=== PATIENT | female | born 1995 | race Hispanic/Latino ===

== ENCOUNTER 2020-12-19 05:34 | Inpatient (IN) | payer OTHER ==
[2020-12-19] MEDS ORDERED: Famotidine/PF 20 mg/2ml Vial SLOW IVP PRN (06:09)
[2020-12-19] MEDS ORDERED: hydrALAZINE 20 MG/ML VIAL SLOW IVP PRN ×2 (06:09→10:04)
[2020-12-19] MEDS ORDERED: Lactated Ringer's 1,000 ML IV SCH (06:09)
[2020-12-19] MEDS ORDERED: Ondansetron PF 4 MG/2 ML Vial IVP PRN ×3 (06:09→14:49)
[2020-12-19] MEDS ORDERED: Promethazine HCl 25 MG/ML VIAL IM PRN ×3 (06:09→14:49)
[2020-12-19] MEDS ORDERED: Bicitra 30 ML UDCUP PO PRN (06:09)
[2020-12-19] MEDS ORDERED: CEFAZOLIN 2 GM in Premix Bag 1 BAG IVPB SCH (06:09)
[2020-12-19 06:11] VITALS: BMI 36.6
[2020-12-19 06:56] LABS: Hemoglobin 10.7 g/dL (12.0-15.5); Mean Corpuscular HGB CONC 33.4 g/dL (32.0-36.0); Mean Corpuscular Hemoglobin 29.9 pg (27.0-33.0); Mean Corpuscular Volume 89.4 fl (81.6-98.3); Mean Platelet Volume 10.4 fl (7.4-10.4); Platelet Count 183 10x3/uL (150-450); RBC Distribution Width 13.1 % (11.5-14.5); Red Blood Cell (RBC) Count 3.58 10x6/uL (3.90-5.03); White Blood Cell (WBC) Count 8.1 10x3/uL (3.5-10.5)
[2020-12-19] MEDS ORDERED: Bicitra 30 ML UDCUP ONE ×3 (07:13→07:14)
[2020-12-19] MEDS ORDERED: Morphine PF 10 MG/10 ML VIAL ONE (07:25)
[2020-12-19] MEDS ORDERED: Ondansetron PF 4 MG/2 ML Vial ONE (07:26)
[2020-12-19] MEDS ORDERED: NIFEdipine 10 MG CAP ONE (07:27)
[2020-12-19] MEDS ORDERED: Oxytocin 10 UNITS/ML VIAL ONE ×2 (07:28→08:12)
[2020-12-19] MEDS ORDERED: ePHEDrine Sulfate 50 MG/10 ML VIAL ONE (07:54)
[2020-12-19 08:04] LABS: Hep B Surf Ag Non-Reactive S/CO (NonReactive)
[2020-12-19 08:05] LABS: Syphilis Antibody Nonreactive (Nonreactive); Syphilis Antibody Index 0.02 S/CO (<1.00 Non-Reactive)
[2020-12-19] MEDS ORDERED: Methylergonovine 0.2 MG/ML VIAL ONE (08:09)
[2020-12-19] MEDS: Carboprost 250 MCG/ML AMP ONE ×2 (08:10→08:26)
[2020-12-19 08:12] LABS: HBSAg Index 0.12 S/CO (0-0.99)
[2020-12-19] MEDS ORDERED: Misoprostol 200 MCG TAB ONE (08:13)
[2020-12-19] MEDS ORDERED: Metoclopramide HCl 10 MG/2 ML VIAL ONE (08:31)
[2020-12-19] MEDS ORDERED: Promethazine HCl 25 MG/ML VIAL ONE (08:40)
[2020-12-19] MEDS ORDERED: Metoprolol Tartrate 5 MG/5 ML VIAL ONE (08:42)
[2020-12-19] MEDS ORDERED: Diltiazem HCl 125 MG, Admixture Fee 1 EACH in Sodium Chloride 0.9% 100 ML IVPB SCH (09:00)
[2020-12-19] MEDS ORDERED: NS w/ Oxytocin 30 units 500 ML ONE (09:37)
[2020-12-19] MEDS ORDERED: Amiodarone 450 MG in Dextrose 5% in Water 250 ML IVPB SCH (10:00)
[2020-12-19] MEDS ORDERED: Simethicone Chewable 80 MG TAB PO PRN (10:04)
[2020-12-19] MEDS ORDERED: Meperidine HCl/PF 25 MG/ML VIAL IM PRN (10:04)
[2020-12-19] MEDS ORDERED: diphenhydrAMINE 25 MG CAP PO PRN (10:04)
[2020-12-19] MEDS ORDERED: Lanolin Ointment 7 GM TUBE TOP PRN (10:04)
[2020-12-19] MEDS ORDERED: HYDROcodone/Acetaminophen 5/325 mg Tablet PO PRN ×2 (10:04)
[2020-12-19] MEDS ORDERED: Bisacodyl 10 MG SUPP PR PRN (10:04)
[2020-12-19] MEDS ORDERED: Amiodarone 150 MG in Dextrose 5% in Water 100 ML IVPB SCH (10:15)
[2020-12-19] MEDS ORDERED: Amiodarone In Dextrose 100 ML IVPB SCH (10:15)
[2020-12-19] MEDS ORDERED: Amiodarone In Dextrose 200 ML IVPB SCH (10:15)
[2020-12-19 10:19] LABS: ALT (SGPT) 10 U/L (8-55); AST (SGOT) 16 U/L (5-34); Albumin 2.9 g/dL (3.5-5.0); Alkaline Phosphatase 152 U/L (40-110); Anion Gap 14 mmol/L (10-20); BUN (Urea Nitrogen) 10 mg/dL (7.0-18.7); Bilirubin, Total 0.3 mg/dL (0.2-1.2); Calc. Creatinine Clearance 234 mL/min (70-130); Calcium 8.5 mg/dL (7.8-10.44); Carbon Dioxide 20 mmol/L (22-29); Chloride 106 mmol/L (98-107); Glucose 113 mg/dL (70-105); Potassium 3.7 mmol/L (3.5-5.1); Protein, Total 5.9 g/dL (6.0-8.3); Sodium 136 mmol/L (136-145)
[2020-12-19] MEDS ORDERED: NS w/ Oxytocin 30 units 500 ML IV SCH (10:45)
[2020-12-19] MEDS ORDERED: PROPOFOL 20 ML ONE (11:20)
[2020-12-19] MEDS ORDERED: PROPOFOL 200 MG/20 ML VIAL IVP SCH (11:20)
[2020-12-19 12:04] LABS: Magnesium 1.5 mg/dL (1.6-2.6)
[2020-12-19] MEDS ORDERED: Magnesium Sulfate 4 GM in Sodium Chloride 0.9% 250 ML 250 ML IVPB SCH (13:30)
[2020-12-19 14:03] LABS: Hemoglobin 10.5 g/dL (12.0-15.5); Mean Corpuscular HGB CONC 33.3 g/dL (32.0-36.0); Mean Corpuscular Hemoglobin 29.3 pg (27.0-33.0); Mean Platelet Volume 10.2 fl (7.4-10.4); Platelet Count 186 10x3/uL (150-450); Red Blood Cell (RBC) Count 3.58 10x6/uL (3.90-5.03); White Blood Cell (WBC) Count 14.8 10x3/uL (3.5-10.5)
[2020-12-19] MEDS ORDERED: diphenhydrAMINE 50 MG/ML VIAL IVP PRN (14:49)
[2020-12-19] MEDS ORDERED: Naloxone HCl 0.4 mg/ml Vial IVP PRN ×2 (14:49)
[2020-12-19] MEDS ORDERED: Naloxone HCl 0.4 mg/ml Vial IV PRN (14:49)
[2020-12-19] MEDS ORDERED: Promethazine HCl 25 MG SUPP PR PRN (14:49)
[2020-12-19] MEDS ORDERED: Communication Order-Pharmacy FS SCH (15:00)
[2020-12-19] MEDS ORDERED: Magnesium 2 GM/50 ML BAG (IN WATER) ONE ×2 (15:06→15:07)
[2020-12-19] MEDS: Magnesium 2 GM/50 ML 2 GM in Premix Bag 1 BAG IVPB SCH ×2 (15:20→16:44)
[2020-12-19] MEDS: Ketorolac Tromethamine 30 MG/ML VIAL IVP PRN ×2 (15:26→22:38)
[2020-12-19] MEDS: Ibuprofen 400 MG TAB PO SCH (17:47)
[2020-12-20] MEDS: Ibuprofen 400 MG TAB PO SCH ×3 (02:51→14:14)
[2020-12-20] MEDS: Docusate Calcium (SURFAK) 240 MG CAP PO SCH ×3 (02:56→22:38)
[2020-12-20] MEDS: Ferrous Sulfate 325 MG TAB PO SCH ×3 (02:56→22:37)
[2020-12-20] MEDS: Ketorolac Tromethamine 30 MG/ML VIAL IVP PRN (04:42)
[2020-12-20 07:40] LABS: Hemoglobin 8.5 g/dL (12.0-15.5); Mean Corpuscular HGB CONC 33.2 g/dL (32.0-36.0); Mean Corpuscular Volume 90.5 fl (81.6-98.3); Mean Platelet Volume 10.8 fl (7.4-10.4); Platelet Count 163 10x3/uL (150-450); RBC Distribution Width 13.2 % (11.5-14.5); Red Blood Cell (RBC) Count 2.83 10x6/uL (3.90-5.03); White Blood Cell (WBC) Count 8.6 10x3/uL (3.5-10.5)
[2020-12-20] MEDS ORDERED: HYDROcodone/Acetaminophen 5/325 mg Tablet PO PRN (07:58)
[2020-12-20] MEDS: Prenatal Vitamin 1 TAB PO SCH (08:45)
[2020-12-20] MEDS: HYDROcodone/Acetaminophen 5/325 mg Tablet PO PRN ×3 (08:45→20:36)
[2020-12-20] MEDS ORDERED: Adacel (T-DAP) 0.5 ML SYRINGE IM ONE (09:00)
[2020-12-20] MEDS: Ibuprofen 800 MG TAB PO SCH ×2 (14:57→22:38)
[2020-12-21] MEDS: Ibuprofen 800 MG TAB PO SCH ×2 (05:33→14:31)
[2020-12-21 06:19] VITALS: TEMP 97.9
[2020-12-21 07:18] LABS: Anisocytosis SLIGHT = 6-15 cells (100X) (0-5/hpf); Band 6 % (5-11); Hemoglobin 7.3 g/dL (12.0-15.5); Large Platelets SLIGHT; Lymphocytes 24 % (21-51); MDiff Complete? YES; Mean Corpuscular HGB CONC 32.6 g/dL (32.0-36.0); Mean Corpuscular Hemoglobin 29.7 pg (27.0-33.0); Mean Corpuscular Volume 91.1 fl (81.6-98.3); Mean Platelet Volume 10.8 fl (7.4-10.4); Microcytosis SLIGHT = 6-15 cells (100X) (0-5/hpf); Monocytes 3 % (0-10); Neutrophil 61 % (42-75); Platelet Clumps SLIGHT; Platelet Count 141 10x3/uL (150-450); Platelet Morphology Comment Appears Adequate; RBC Distribution Width 13.4 % (11.5-14.5); Reactive Lymphocytes 5 % (0-10); Red Blood Cell (RBC) Count 2.46 10x6/uL (3.90-5.03); White Blood Cell (WBC) Count 8.2 10x3/uL (3.5-10.5)
[2020-12-21] MEDS: HYDROcodone/Acetaminophen 5/325 mg Tablet PO PRN ×2 (08:43→16:12)
[2020-12-21] MEDS: Docusate Calcium (SURFAK) 240 MG CAP PO SCH (08:43)
[2020-12-21] MEDS: Ferrous Sulfate 325 MG TAB PO SCH (08:43)
[2020-12-21] MEDS: Prenatal Vitamin 1 TAB PO SCH (08:43)
[2020-12-21 14:39] VITALS: BP 112/62
== END 2020-12-21 17:10 | disposition home or self-care (01) | DRG 787 ==
LOC: CSHLD 05:34 → CSHIMCU 09:33 → CSHPP 14:20
PROVIDERS: ADMIT Family Medicine; ATTEND Internal Medicine
PROC: 5A2204Z Restoration of Cardiac Rhythm, Single (ICD-10-PCS; principal; 2020-12-19)
PROC: 10D00Z1 Extraction of Products of Conception, Low, Open Approach (ICD-10-PCS; 2020-12-19)
DX: O34.211 Maternal care for low transverse scar from previous cesarean delivery (principal); O99.43 Diseases of the circulatory system complicating the puerperium; O72.1 Other immediate postpartum hemorrhage; I48.91 Unspecified atrial fibrillation; O99.02 Anemia complicating childbirth; D50.9 Iron deficiency anemia, unspecified; Z20.822 Contact with and (suspected) exposure to COVID-19; Z83.3 Family history of diabetes mellitus; Z3A.39 39 weeks gestation of pregnancy; Z37.0 Single live birth
CPT/HCPCS: 51702; 80053; 83735; 84443; 85007; 85027; 86780; 86850; 86900; 86901; 87340; 93005; 93010; 93306; 94760; J0282; J0690; J1885; J2210; J2270; J2405; J2550; J2765; J3475; J3490